=== PATIENT | male | born 1990 | race Hispanic/Latino ===

== ENCOUNTER → 2019-12-01 | Day surgery (SDC) | payer BC, OTHER ==
[~2019-12-01] MED LIST: APRISO0.375 GM PO; FENTANYL CITRATE/PF 100MCG/2 ML INJ ONE; HYOSCYAMINE 0.125 MG TAB ONE; MIDAZOLAM HCL 2 MG/2 ML VIAL ONE
[2019-12-01 18:12] LABS: WBC,FECAL (FECAL LACTOFERRIN) POSITIVE (NEGATIVE)
[2019-12-01 18:35] VITALS: BP 125/78
--- NOTE | 2019-12-01 19:31 | Operative Report ---
DATE OF PROCEDURE: 12/01/2019 SURGEON: Mauro Solis MD PROCEDURES: EGD and colonoscopy. INDICATIONS FOR EGD: Abdominal pain. INDICATIONS FOR COLONOSCOPY: Rectal bleeding, bloody stools, history of Crohn disease. MEDICATIONS: The patient was done under MAC, please see anesthesiologist's note. PROCEDURE IN DETAIL: With the patient in left lateral decubitus position, a flexible fiberoptic Olympus gastroscope was introduced into the esophagus under direct visualization without any difficulty. There was some mild inflammatory changes noted in the distal esophagus. Minute tongues of velvety red mucosa were noted to extend proximally from the GE junction, and biopsies were obtained to rule out [place]'s. The scope was then advanced with ease into the stomach and mucosa overlying the antrum and the body revealed some patchy erythema and [id number] edema. Biopsies were obtained, sent to stain for H. pylori. Pylorus was of normal contour and shape, it was intubated with ease and the scope was advanced all the way to the second portion of the duodenum. The scope was then withdrawn slowly, mucosa overlying the proximal second portion and duodenal bulb grossly appeared to be within normal limits. Biopsies were obtained to rule out sprue. The scope was then withdrawn back into the stomach and retroflexed, mucosa overlying the fundus and cardia appeared to be within normal limits. The scope was then straightened out, it was subsequently withdrawn. The patient tolerated the procedure well. IMPRESSION: 1. Distal esophagitis, mild. 2. Gastritis, biopsied, biopsies sent to stain for H. pylori. 3. Rule out sprue. PLAN: 1. Follow up histology. 2. Initiate Protonix 40 mg one p.o. q.a.m. a.c. DESCRIPTION OF PROCEDURE: The patient was then turned around after adequate lubrication of the anal canal, a flexible fiberoptic Olympus colonoscope was inserted into the rectum with ease and advanced all the way to the cecum. Mucosa overlying the cecum appeared to be within normal limits. The ileocecal valve was intubated and the scope was advanced into the terminal ileum. Biopsies were obtained. The scope was then withdrawn back into the colon; it was then withdrawn slowly, mucosa overlying the ascending and the transverse grossly appeared to be within normal limits. Mucosa overlying the left colon and the rectum revealed some patchy mild inflammatory changes, and random biopsies were obtained. The scope was then retroflexed into the distal rectum; small internal hemorrhoids were noted, none of which was actively bleeding. The scope was then straightened out, it was subsequently withdrawn after securing an adequate stool specimen, that was sent for the appropriate stool studies. The patient tolerated the procedure well. IMPRESSION: 1. Mild patchy left-sided colitis. 2. Proctitis, mild. 3. Internal hemorrhoids, none actively bleeding. PLAN: 1. Follow up histology. 2. Initiate VSL #3 one p.o. b.i.d. Hydrocortisone suppository 25 mg b.i.d. x10 days and p.r.n. 3. The patient will need small bowel series. We will check IBD panel, CRP, and sedimentation rate. Mauro Solis MD [facility] [place]/[facility] /[id number] cc: Hans Carrasco MD
[2019-12-02 15:14] LABS: C DIFFICILE TOXIN A&B AMP PROB NEGATIVE (NEGATIVE)
== END | disposition home or self-care (01) ==
LOC: OR 13:52
PROVIDERS: ATTEND Internal Medicine Gastroenterology
DX: K50.911 Crohn's disease, unspecified, with rectal bleeding (principal); K29.50 Unspecified chronic gastritis without bleeding; K20.9 Esophagitis, unspecified; K22.8 Other specified diseases of esophagus; K62.89 Other specified diseases of anus and rectum; K64.8 Other hemorrhoids; M54.9 Dorsalgia, unspecified; Z72.0 Tobacco use; Z88.8 Allergy status to other drugs, medicaments and biological substances; Z01.812 Encounter for preprocedural laboratory examination; Z11.59 Encounter for screening for other viral diseases; Z80.0 Family history of malignant neoplasm of digestive organs
CPT/HCPCS: 36415; 43239; 45380; 83630; 83993; 85651; 86140; 86256; 86671; 87045; 87177; 87328; 87493; 87635; J2250; J3010

== ENCOUNTER 2024-06-04 19:25 | Emergency (ER) | payer SELFPAY ==
[~2024-06-04] VITALS: Ht 177.8 cm; Wt 86.2 kg
[~2024-06-04 19:25] MED LIST changes: -FENTANYL CITRATE/PF 100MCG/2 ML INJ ONE; -HYOSCYAMINE 0.125 MG TAB ONE; -MIDAZOLAM HCL 2 MG/2 ML VIAL ONE
[2024-06-04 19:30] VITALS: PULSE 109; RESP 18; TEMP 98.3
[2024-06-04] MEDS ORDERED: KETOROLAC TROMETHAMINE 60 MG/2 ML VIAL IM STA (20:59)
[2024-06-04] MEDS ORDERED: Morphine 2mg Syringe 2 MG/ML SYR ONE (21:28)
[2024-06-04] MEDS: Morphine 4mg INJECTION 4 MG/ML INJ IM STA (21:53)
[2024-06-04] MEDS ORDERED: CIPRO500 MG PO (22:06)
[2024-06-04] MEDS ORDERED: ACETAMINOPHEN-1 EAC4 PO (22:06)
[2024-06-04] MEDS ORDERED: ONDANSETRON ODT4 MG PO (22:06)
[2024-06-05 00:11] VITALS: BP 127/84; PULSE 81; RESP 18; TEMP 97.8; O2SAT 98
== END 2024-06-04 22:13 | disposition home or self-care (01) ==
LOC: ER 19:29
DX: N50.811 Right testicular pain (principal); N43.3 Hydrocele, unspecified
CPT/HCPCS: 76870; 93976; 99284; J2270